=== PATIENT | female | born 1980 | race Caucasian/White ===

== ENCOUNTER → 2017-02-07 | Outpatient (CLI) | payer BC ==
[~2017-02-07] MED LIST: ASPI-391 PEG; ETONMIS VAGRING; HYDR-5688 PO; LISI-725 PO; OMEP40CA PO
== END | disposition home or self-care (01) ==
LOC: C.PAPS 15:14
PROVIDERS: ATTEND Obstetrics & Gynecology
DX: Z01.419 Encounter for gynecological examination (general) (routine) without abnormal findings (principal)

== ENCOUNTER 2017-12-03 09:48 | Emergency (ER) | payer BC, OTHER ==
[~2017-12-03] VITALS: Ht 157.5 cm; Wt 82.6 kg
[2017-12-03 09:52] VITALS: TEMP 37; Ht 157.5 cm; Wt 82.6 kg
[2017-12-03] MEDS ORDERED: LORAZEPAM 2 MG/ML 1 ML VIAL IV STA (10:02)
--- NOTE | 2017-12-03 10:03 | EMERGENCY ROOM VISIT NOTE ---
History Report prepared by Rey: Joseph Weiner Under the Supervision of: Aydin MroelO. First contact with patient: 09:58 Chief Complaint: NEURO SYMPTOMS Stated Complaint: UNCONTROLED MUSCLE MOVMENT/ TWITCHES History of Present Illness The patient is a 37 year old female who presents to the Emergency Room with complaints of episodes of uncontrollable muscle spasms in her legs that started yesterday. She says that she had 2 episodes yesterday, where she had twitching in her legs that each lasted about 20 minutes. The patient states that the episode this morning has been going on for 2 hours now. She notes that she initially thought that her episodes were due to anxiety, as she is on Wellbutrin for depression, but the worsening episode this morning concerned her. She adds that she had a headache a few days ago that she thinks was tension related, but that has resolved. The patient denies any chest pain or shortness of breath. She adds that she is on medication for blood pressure. Source of History: patient Onset: Yesterday Position: leg (bilateral) Symptom Intensity: uncontrollable Quality: other (muscle spasms/twitching) Timing: other (episodes) Associated Symptoms: No chest pain, No SOB Note: No other associated symptoms noted. Review of Systems See HPI for pertinent positives & negatives. A total of 10 systems reviewed and were otherwise negative. Past Medical & Surgical Medical Problems: (1) Asthma (2) Bronchitis (3) Gastroparesis (4) Helicobacter Pylori [H. Pylori] (5) Hypertension (6) Hypertension Nos (7) Mandibular hyperplasia (8) Maxillary hypoplasia (9) Migraines (10) Polycystic Ovarian Syndrome (11) Vertigo Family History No pertinent family history Social History Smoking Status: Never Smoker Alcohol Use: occasionally Drug Use: none Marital Status: Housing Status: lives with family Occupation Status: employed Current/Historical Medications Scheduled Bupropion (Wellbutrin Sr), 200 MG PO QAM Doxepin (Sinequan), 50 MG PO HS Omeprazole (Prilosec), 40 MG PO DAILY Spironolactone (Aldactone), 100 MG PO HS Scheduled PRN Ffmsdum-Cfrmhrbspqlbf-Snbhyzqh (Excedrin Extra Strength), 2 TABS PEG BID PRN for Pain Allergies Coded Allergies: No Known Allergies (Verified , 12/03/17) Physical Exam Vital Signs Date Time Temp Pulse Resp B/P (MAP) Pulse Ox O2 Delivery O2 Flow Rate FiO2 12/03/17 13:55 88 18 143/94 98 12/03/17 12:14 92 20 160/112 98 Room Air 12/03/17 11:16 96 12/03/17 11:11 96 Room Air 12/03/17 09:52 37.0 100 20 167/109 98 Room Air Physical Exam GENERAL: Patient is awake, alert, and in no acute distress. Patient is resting comfortably and showing no signs of anxiety EYES: The conjunctivae are clear. The pupils are round and reactive. EARS, NOSE, MOUTH AND THROAT: The nose is without any evidence of any deformity. Mucous membranes are moist tongue is midline NECK: The neck is nontender and supple. RESPIRATORY: Normal respiratory effort is noted there is no evidence of wheezing rhonchi or rales CARDIOVASCULAR: Regular rate and rhythm noted there no murmurs rubs or gallops normal S1 normal S2 GASTROINTESTINAL: The abdomen is soft. Bowel sounds are present in all quadrants. Abdomen is nontender MUSCULOSKELETAL/EXTREMITIES: There is no evidence of gross deformity full range of motion is noted in the hips and shoulders SKIN: There is no obvious evidence of any rash. There are no petechiae, pallor or cyanosis noted. NEUROLOGIC: Patient is awake alert and oriented x3. Rhythmic tonic activity noted right thigh. Patellar tendon reflexes 1+ bilaterally. Medical Decision & Procedures ER Provider Diagnostic Interpretation: Radiology results as stated below per my review and radiologist interpretation: HEAD WITHOUT CONTRAST (CT) CT DOSE: 537.48 mGy.cm HISTORY: Altered mental status EVALUATE ALTERED MENTAL STATUS/WEAKNESS TECHNIQUE: Multiaxial CT images of the head were performed without the use of intravenous contrast. A dose lowering technique was utilized adhering to the principles of ALARA. Comparison: None. Findings: The paranasal sinuses and mastoid air cells are clear. The calvarium and skull base are intact. The ventricles and sulci are within normal limits. There is no mass, hematoma, midline shift, or acute infarct. Impression: No acute intracranial abnormality. The above report was generated using voice recognition software. It may contain grammatical, syntax or spelling errors. Electronically signed by: David Chu M.D. 12/03/2017 11:48 AM Dictated Date/Time: 12/03/2017 11:47 AM CHEST ONE VIEW PORTABLE CLINICAL HISTORY: EVALUATE ALTERED MENTAL STATUS/WEAKNESS mental status change COMPARISON STUDY: 05/28/2016 FINDINGS: The bones soft tissues and hemidiaphragms are normal. The cardiomediastinal silhouette is normal. The lungs are clear. The pulmonary vasculature is normal. IMPRESSION: Negative chest. The above report was generated using voice recognition software. It may contain grammatical, syntax or spelling errors. Electronically signed by: David Chu M.D. 12/03/2017 10:31 AM Dictated Date/Time: 12/03/2017 10:30 AM Laboratory Results 12/03/17 11:00 Red Blood Count 5.23, Mean Corpuscular Volume 80.9, Mean Corpuscular Hemoglobin 27.3, Mean Corpuscular Hemoglobin Concent 33.8, Mean Platelet Volume 9.6, Neutrophils (%) (Auto) 64.7, Lymphocytes (%) (Auto) 28.7, Monocytes (%) (Auto) 5.1, Eosinophils (%) (Auto) 1.0, Basophils (%) (Auto) 0.4, Neutrophils # (Auto) 5.35, Lymphocytes # (Auto) 2.37, Monocytes # (Auto) 0.42, Eosinophils # (Auto) 0.08, Basophils # (Auto) 0.03 12/03/17 11:00 Test 12/03/17 11:00 12/03/17 12:00 White Blood Count 8.26 K/uL (4.8-10.8) Red Blood Count 5.23 M/uL (4.2-5.4) Hemoglobin 14.3 g/dL (12.0-16.0) Hematocrit 42.3 % (37-47) Mean Corpuscular Volume 80.9 fL (80-100) Mean Corpuscular Hemoglobin 27.3 pg (25-34) Mean Corpuscular Hemoglobin Concent 33.8 g/dl (32-36) Platelet Count 253 K/uL (130-400) Mean Platelet Volume 9.6 fL (7.4-10.4) Neutrophils (%) (Auto) 64.7 % Lymphocytes (%) (Auto) 28.7 % Monocytes (%) (Auto) 5.1 % Eosinophils (%) (Auto) 1.0 % Basophils (%) (Auto) 0.4 % Neutrophils # (Auto) 5.35 K/uL (1.4-6.5) Lymphocytes # (Auto) 2.37 K/uL (1.2-3.4) Monocytes # (Auto) 0.42 K/uL (0.11-0.59) Eosinophils # (Auto) 0.08 K/uL (0-0.5) Basophils # (Auto) 0.03 K/uL (0-0.2) RDW Standard Deviation 42.7 fL (36.4-46.3) RDW Coefficient of Variation 14.3 % (11.5-14.5) Immature Granulocyte % (Auto) 0.1 % Immature Granulocyte # (Auto) 0.01 K/uL (0.00-0.02) Prothrombin Time 10.7 SECONDS (9.0-12.0) Prothromb Time International Ratio 1.0 (0.9-1.1) Activated Partial Thromboplast Time 29.5 SECONDS (21.0-31.0) Partial Thromboplastin Ratio 1.1 Anion Gap 7.0 mmol/L (3-11) Est Creatinine Clear Calc Drug Dose 79.2 ml/min Estimated GFR () 87.0 Estimated GFR (Non- 75.0 BUN/Creatinine Ratio 11.4 (10-20) Calcium Level 9.1 mg/dl (8.5-10.1) Magnesium Level 2.3 mg/dl (1.8-2.4) Total Bilirubin 0.4 mg/dl (0.2-1) Direct Bilirubin < 0.1 mg/dl (0-0.2) Aspartate Amino Transf (AST/SGOT) 22 U/L (15-37) Alanine Aminotransferase (ALT/SGPT) 35 U/L (12-78) Alkaline Phosphatase 105 U/L (45-117) Troponin I < 0.015 ng/ml (0-0.045) Total Protein 7.9 gm/dl (6.4-8.2) Albumin 4.1 gm/dl (3.4-5.0) Thyroid Stimulating Hormone (TSH) 1.580 uIu/ml (0.300-4.500) Human Chorionic Gonadotropin, Qual NEG (NEG) Urine Color YELLOW Urine Appearance CLEAR (CLEAR) Urine pH 7.5 (4.5-7.5) Urine Specific [place] 1.005 (1.000-1.030) Urine Protein NEG (NEG) Urine Glucose (UA) NEG (NEG) Urine Ketones NEG (NEG) Urine Occult Blood NEG (NEG) Urine Nitrite NEG (NEG) Urine Bilirubin NEG (NEG) Urine Urobilinogen NEG (NEG) Urine Leukocyte Esterase NEG (NEG) Laboratory results per my review. ECG Per My Interpretation Indication: other (neuro symptoms) Rate (beats per minute): 86 Rhythm: normal sinus Findings: other (no PVCs, no acute ST segment abnormalities) Change: no significant change (from 05/28/16) ED Course 0959: The patient was evaluated in room B5. A complete history and physical examination were performed. 1002: Ativan Inj 1 mg IV. 1053: I reevaluated and updated the patient. 1320: Upon reevaluation, the patient is resting comfortably. I discussed the results and treatment plan with her. She verbalized agreement of the treatment plan. She was discharged home. Medical Decision Differential diagnosis: Etiologies such as infection, hypoglycemia, electrolyte abnormalities, cardiac sources, intracerebral event, trauma, toxicologic, neurologic, as well as others were entertained. Nursing notes reviewed. Additional history is obtained from the patient's significant other. The patient is a 37-year-old female who presented to the emergency department with a right leg shaking. Initially I thought this was secondary to a focal seizure but she was able to control it. The patient was treated with Ativan in the emergency department. On subsequent reevaluation she was significantly improved. She was encouraged to continue all medications as prescribed. She was also encouraged to follow-up with her therapist as scheduled as well as her primary care physician as soon as possible. Otherwise she was encouraged to return to the emergency department immediately if symptoms change worsen or the need arises. Medication Reconcilliation Current Medication List: was personally reviewed by me Blood Pressure Screening Patient's blood pressure: Elevated blood pressure Blood pressure disposition: Elevated BP felt to be situational Impression Primary Impression: Anxiety Additional Impression: Muscle tremor Scribe Attestation The scribe's documentation has been prepared under my direction and personally reviewed by me in its entirety. I confirm that the note above accurately reflects all work, treatment, procedures, and medical decision making performed by me. Departure Information Dispostion Home / Self-Care Referrals No Doctor, Assigned (PCP) Mary Perez D.O. Forms HOME CARE DOCUMENTATION FORM, IMPORTANT VISIT INFORMATION, WORK / SCHOOL INSTRUCTIONS Patient Instructions Anxiety Disorder, Muscle Spasm, My [facility] Additional Instructions Continue all medications as prescribed. Follow-up with your family doctor soon as possible. Follow-up with your therapist. Return to the emergency department immediately if symptoms change worsen or the need arises. Problem Qualifiers
[2017-12-03] MEDS ORDERED: SPIR100T PO (10:18)
[2017-12-03] MEDS ORDERED: OMEP40CA41 PO (10:18)
[2017-12-03] MEDS ORDERED: DOXE50CA3 PO (10:18)
[2017-12-03] MEDS ORDERED: BUPR200T2 PO (10:18)
--- NOTE | 2017-12-03 10:32 | DIAGNOSTIC IMAGING REPORT ---
CHEST ONE VIEW PORTABLE CLINICAL HISTORY: EVALUATE ALTERED MENTAL STATUS/WEAKNESS mental status change COMPARISON STUDY: 05/28/2016 FINDINGS: The bones soft tissues and hemidiaphragms are normal. The cardiomediastinal silhouette is normal. The lungs are clear. The pulmonary vasculature is normal. IMPRESSION: Negative chest. The above report was generated using voice recognition software. It may contain grammatical, syntax or spelling errors. Electronically signed by: David Chu M.D. 12/03/2017 10:31 AM Dictated Date/Time: 12/03/2017 10:30 AM
[2017-12-03 11:11] VITALS: O2SAT 96
[2017-12-03 11:15] LABS: BASO % 0.4 %; BASO ABS # 0.03 K/uL (0-0.2); EOS ABS # 0.08 K/uL (0-0.5); HEMATOCRIT 42.3 % (37-47); HEMOGLOBIN 14.3 g/dL (12.0-16.0); IG# 0.01 K/uL (0.00-0.02); LYMPH % 28.7 %; LYMPH ABS # 2.37 K/uL (1.2-3.4); MEAN CELL VOLUME 80.9 fL (80-100); MEAN CORPUSCULAR HEMOGLOBIN 27.3 pg (25-34); MEAN CORPUSCULAR HGB CONC 33.8 g/dl (32-36); MEAN PLATELET VOLUME 9.6 fL (7.4-10.4); MONO % 5.1 %; MONO ABS # 0.42 K/uL (0.11-0.59); NEUT % 64.7 %; NEUT ABS # 5.35 K/uL (1.4-6.5); PLATELET COUNT 253 K/uL (130-400); RED CELL DISTRIBUTION WIDTH CV 14.3 % (11.5-14.5); RED CELL DISTRIBUTION WIDTH SD 42.7 fL (36.4-46.3); WHITE BLOOD COUNT 8.26 K/uL (4.8-10.8)
[2017-12-03 11:27] LABS: PTT PATIENT 29.5 SECONDS (21.0-31.0)
--- NOTE | 2017-12-03 11:49 | DIAGNOSTIC IMAGING REPORT ---
HEAD WITHOUT CONTRAST (CT) CT DOSE: 537.48 mGy.cm HISTORY: Altered mental status EVALUATE ALTERED MENTAL STATUS/WEAKNESS TECHNIQUE: Multiaxial CT images of the head were performed without the use of intravenous contrast. A dose lowering technique was utilized adhering to the principles of ALARA. Comparison: None. Findings: The paranasal sinuses and mastoid air cells are clear. The calvarium and skull base are intact. The ventricles and sulci are within normal limits. There is no mass, hematoma, midline shift, or acute infarct. Impression: No acute intracranial abnormality. The above report was generated using voice recognition software. It may contain grammatical, syntax or spelling errors. Electronically signed by: David Chu M.D. 12/03/2017 11:48 AM Dictated Date/Time: 12/03/2017 11:47 AM
[2017-12-03 11:51] LABS: ALBUMIN 4.1 gm/dl (3.4-5.0); ALT/SGPT 35 U/L (12-78); BLOOD UREA NITROGEN 11 mg/dl (7-18); CALCIUM 9.1 mg/dl (8.5-10.1); CARBON DIOXIDE 24 mmol/L (21-32); CREATININE 0.96 mg/dl (0.60-1.20); GLUCOSE 82 mg/dl (70-99); POTASSIUM 4.5 mmol/L (3.5-5.1); SODIUM 137 mmol/L (136-145)
[2017-12-03 12:02] LABS: ALKALINE PHOSPHATASE 105 U/L (45-117); AST/SGOT 22 U/L (15-37); TOTAL PROTEIN 7.9 gm/dl (6.4-8.2)
[2017-12-03 13:55] VITALS: BP 143/94; PULSE 88; O2SAT 98
== END 2017-12-03 13:55 | disposition home or self-care (01) ==
LOC: C.EDB 09:52
DX: F41.9 Anxiety disorder, unspecified (principal); R25.1 Tremor, unspecified; F32.9 Major depressive disorder, single episode, unspecified; J45.909 Unspecified asthma, uncomplicated; I10 Essential (primary) hypertension; E28.2 Polycystic ovarian syndrome; Z79.899 Other long term (current) drug therapy

== ENCOUNTER 2018-01-15 11:29 | Emergency (ER) | payer OTHER ==
[~2018-01-15] VITALS: Ht 157.5 cm; Wt 81.1 kg
[~2018-01-15 11:29] MED LIST changes: -ASPI-391 PEG; +ASPI-391 PO; +BUPR200T2 PO; +DOXE50CA3 PO; -ETONMIS VAGRING; -HYDR-5688 PO; -LISI-725 PO; -OMEP40CA PO; +OMEP40CA41 PO; +SPIR100T PO
[2018-01-15 11:44] VITALS: TEMP 36.8; Ht 157.5 cm; Wt 81.1 kg
[2018-01-15] MEDS ORDERED: AMLO2.5T PO (12:23)
[2018-01-15] MEDS ORDERED: ABL/5 PO (12:23)
[2018-01-15] MEDS ORDERED: SODIUM CHLORIDE 0.9% 1000ML 1,000 ML IV ONE (12:30)
--- NOTE | 2018-01-15 12:59 | EMERGENCY ROOM VISIT NOTE ---
History First contact with patient: 11:48 Chief Complaint: DIZZY Stated Complaint: LIGHT HEADED,FEELINGS LIKE PASSING,TINGLING Nursing Triage Summary: "I almost passed out driving. Im still feeling tingling on my left side. Im lightheaded and dizzy. I tried calling my doctor and they werent responding." Pt denies these symptoms prior to getting into car. History of Present Illness The patient is a 37 year old female who presents to the Emergency Room with complaints of a near syncopal episode that occurred at approximately 10 AM this morning. The patient was driving when the episode occurred. She describes lightheadedness and numbness and tingling in her hands. She also felt like her vision was closing in. She denies any headache. No chest pain or difficulty breathing. No nausea or vomiting. When asked with the patient has eaten so far today, she said that she has had nothing to drink. She ate some martinez tomatoes this morning. She denies any changes in medication over the last several weeks. She denies any history of diabetes. She has had a few other similar episodes. One occurred when she was bending down last week. They resolved with rest. Review of Systems 10 system review performed and negative unless noted in HPI or below Past Medical/Surgical History Medical Problems: (1) Asthma (2) Bronchitis (3) Gastroparesis (4) Helicobacter Pylori [H. Pylori] (5) Hypertension (6) Hypertension Nos (7) Mandibular hyperplasia (8) Maxillary hypoplasia (9) Migraines (10) Polycystic Ovarian Syndrome (11) Vertigo Family History No pertinent family history Social History Smoking Status: Never Smoker Alcohol Use: occasionally Drug Use: none Marital Status: Housing Status: lives with family Occupation Status: employed Current/Historical Medications Scheduled Amlodipine Besylate (Norvasc), 2.5 MG PO DAILY Aripiprazole (Abilify), 2.5 MG PO QPM Bupropion (Wellbutrin Sr), 200 MG PO QAM Doxepin (Sinequan), 50 MG PO HS Omeprazole (Prilosec), 40 MG PO DAILY Spironolactone (Aldactone), 100 MG PO HS Scheduled PRN Gmfgpzp-Tdltssabvvjlm-Mwheqicf (Excedrin Extra Strength), 2 TABS PO BID PRN for Pain Physical Exam Vital Signs Date Time Temp Pulse Resp B/P (MAP) Pulse Ox O2 Delivery O2 Flow Rate FiO2 4/26/18 15:29 82 18 151/103 100 Room Air 01/15/18 14:52 85 18 148/105 100 Room Air 01/15/18 13:30 92 16 151/100 97 Room Air 104 161/107 97 141/103 01/15/18 12:55 92 01/15/18 11:44 36.8 96 17 169/113 100 Room Air Physical Exam VITALS: Vitals are noted on the nurse's note and reviewed by myself. Vital signs stable. GENERAL: 37-year-old female, mildly anxious in appearance,, SKIN: The skin was without rashes, erythema, edema, or bruising. HEAD: Normocephalic atraumatic. EYES: Pupils equal round and reactive to light and accommodation. Conjunctivae without injection, sclerae without icterus. Extraocular movements intact. MOUTH: Mucous membranes dry NECK: Supple without nuchal rigidity. No JVD. HEART: Regular rate and rhythm without murmurs gallops or rubs. LUNGS: Clear to auscultation bilaterally without wheezes, rales or rhonchi. No accessory muscle use. ABDOMEN: Positive bowel sounds x 4.Soft, nontender, without organomegaly. No guarding or rebound tenderness. MUSCULOSKELETAL: No muscle atrophy, erythema, or edema noted. Strength 5/5 throughout. NEURO: Patient was alert and oriented to person place and time. Cranial nerves grossly intact. Cerebellar function intact. Negative Romberg. Normal sensation to touch. No focal neurological deficits. Medical Decision & Procedures ER Provider Diagnostic Interpretation: CT head without contrast IMPRESSION: No acute intracranial abnormality. Electronically signed by: Harley Lopez M.D. 01/15/2018 2:05 PM Dictated Date/Time: 01/15/2018 2:03 PM Laboratory Results 01/15/18 12:59 Red Blood Count 5.17, Mean Corpuscular Volume 82.6, Mean Corpuscular Hemoglobin 28.2, Mean Corpuscular Hemoglobin Concent 34.2, Mean Platelet Volume 9.4, Neutrophils (%) (Auto) 66.7, Lymphocytes (%) (Auto) 26.9, Monocytes (%) (Auto) 5.3, Eosinophils (%) (Auto) 0.5, Basophils (%) (Auto) 0.3, Neutrophils # (Auto) 5.28, Lymphocytes # (Auto) 2.13, Monocytes # (Auto) 0.42, Eosinophils # (Auto) 0.04, Basophils # (Auto) 0.02 01/15/18 12:59 Test 01/15/18 12:40 01/15/18 12:59 Urine Test NEG (NEG) White Blood Count 7.91 K/uL (4.8-10.8) Red Blood Count 5.17 M/uL (4.2-5.4) Hemoglobin 14.6 g/dL (12.0-16.0) Hematocrit 42.7 % (37-47) Mean Corpuscular Volume 82.6 fL (80-100) Mean Corpuscular Hemoglobin 28.2 pg (25-34) Mean Corpuscular Hemoglobin Concent 34.2 g/dl (32-36) Platelet Count 233 K/uL (130-400) Mean Platelet Volume 9.4 fL (7.4-10.4) Neutrophils (%) (Auto) 66.7 % Lymphocytes (%) (Auto) 26.9 % Monocytes (%) (Auto) 5.3 % Eosinophils (%) (Auto) 0.5 % Basophils (%) (Auto) 0.3 % Neutrophils # (Auto) 5.28 K/uL (1.4-6.5) Lymphocytes # (Auto) 2.13 K/uL (1.2-3.4) Monocytes # (Auto) 0.42 K/uL (0.11-0.59) Eosinophils # (Auto) 0.04 K/uL (0-0.5) Basophils # (Auto) 0.02 K/uL (0-0.2) RDW Standard Deviation 45.3 fL (36.4-46.3) RDW Coefficient of Variation 15.0 % (11.5-14.5) Immature Granulocyte % (Auto) 0.3 % Immature Granulocyte # (Auto) 0.02 K/uL (0.00-0.02) Anion Gap 5.0 mmol/L (3-11) Est Creatinine Clear Calc Drug Dose 69.1 ml/min Estimated GFR () 74.6 Estimated GFR (Non- 64.3 BUN/Creatinine Ratio 8.7 (10-20) Calcium Level 9.4 mg/dl (8.5-10.1) Total Bilirubin 0.4 mg/dl (0.2-1) Aspartate Amino Transf (AST/SGOT) 26 U/L (15-37) Alanine Aminotransferase (ALT/SGPT) 34 U/L (12-78) Alkaline Phosphatase 99 U/L (45-117) Total Protein 8.8 gm/dl (6.4-8.2) Albumin 4.3 gm/dl (3.4-5.0) Globulin 4.5 gm/dl (2.5-4.0) Albumin/Globulin Ratio 1.0 (0.9-2) Chemistry Specimen Hemolysis Medications Administered Medications (Trade) Dose Ordered Sig/Miguelina Route Start Time Stop Time Status Last Admin Dose Admin Sodium Chloride 1,000 ml @ 999 mls/hr Q1H1M ONCE IV 01/15/18 12:30 01/15/18 13:30 DC 01/15/18 13:30 999 MLS/HR ECG Per My Interpretation Indication: syncope Rate (beats per minute): 87 Rhythm: normal sinus Findings: other (Q waves present in the anterior leads. Incomplete right bundle branch block) Change: no significant change (When compared to EKG from December 03, 2017) ED Course Patient was seen and examined Vital signs including blood pressure were reviewed medications list was verified with patient Labs were obtained, and a saline lock was established An EKG was performed, the patient was put on a monitor She was hydrated with 1 L of normal saline Imaging was performed and reviewed upon reevaluation, the patient was feeling somewhat better. We reviewed her results. She voiced understanding, was comfortable being discharged home. I reviewed discharge instructions the patient. They voiced understanding and had no further questions. Medical Decision Differential diagnosis: Dehydration, anxiety/panic attack, hypertensive urgency , cardiac arrhythmia, intracranial abnormality This patient is a 37-year-old female who presents to the emergency department with a feeling of near syncope prior to arrival. She also had some numbness and tingling in her bilateral hands. On exam, she was nontoxic in appearance. Vitals were stable. Neurologic exam was intact. She was dehydrated. Her workup is fairly unremarkable. EKG is unchanged when compared to previous. CT of the head without intracranial abnormalities. She is not significantly anemic. Troponin is negative. Patient does have a history of anxiety, which I feel is playing a role in her symptoms today. The patient's blood pressure was slightly elevated. She was notified of this. She was instructed to follow-up with her primary care physician. She feels comfortable being discharged home with follow-up. She will return with any new or concerning symptoms This chart was completed in part utilizing [employer] Speech Voice Recognition software. Attempts were made to minimize the grammatical errors, random word insertions, pronoun errors and incomplete sentences. Any formal questions or concerns about the content, text or information contained within the body of this dictation should be directly addressed to the provider for clarification. Medication Reconcilliation Current Medication List: was personally reviewed by me Blood Pressure Screening Patient's blood pressure: Elevated blood pressure Blood pressure disposition: Did not require urgent referral Impression Primary Impression: Near syncope Departure Information Dispostion Home / Self-Care Condition GOOD Referrals Mary Perez D.OMarlene (PCP) Patient Instructions My [facility] Additional Instructions You were seen in the emergency department today for feeling like you were going to pass out. Dehydration could be playing a part in your symptoms. Please stay well-hydrated. Increase fluids over the next several days. Your blood pressure was also slightly elevated. Please follow-up with your primary care physician to have this rechecked. This should be rechecked within the next 24-48 hours. Due to your symptoms today, please do not drive or operate machinery until cleared by your primary care physician Please do not hesitate to return to the emergency department with any new, worsening or concerning symptoms It was a pleasure participating in your care today Work Instructions Return To Work: 2 days School Instructions Return To School: 2 days
[2018-01-15 13:14] LABS: BASO % 0.3 %; BASO ABS # 0.02 K/uL (0-0.2); EOS % 0.5 %; EOS ABS # 0.04 K/uL (0-0.5); HEMATOCRIT 42.7 % (37-47); HEMOGLOBIN 14.6 g/dL (12.0-16.0); IG# 0.02 K/uL (0.00-0.02); LYMPH % 26.9 %; LYMPH ABS # 2.13 K/uL (1.2-3.4); MEAN CELL VOLUME 82.6 fL (80-100); MEAN CORPUSCULAR HEMOGLOBIN 28.2 pg (25-34); MEAN CORPUSCULAR HGB CONC 34.2 g/dl (32-36); MEAN PLATELET VOLUME 9.4 fL (7.4-10.4); MONO % 5.3 %; MONO ABS # 0.42 K/uL (0.11-0.59); NEUT % 66.7 %; NEUT ABS # 5.28 K/uL (1.4-6.5); PLATELET COUNT 233 K/uL (130-400); RED CELL DISTRIBUTION WIDTH SD 45.3 fL (36.4-46.3); WHITE BLOOD COUNT 7.91 K/uL (4.8-10.8)
[2018-01-15 13:42] LABS: ALBUMIN 4.3 gm/dl (3.4-5.0); CALCIUM 9.4 mg/dl (8.5-10.1); CREATININE 1.09 mg/dl (0.60-1.20); POTASSIUM 3.8 mmol/L (3.5-5.1); TOTAL PROTEIN 8.8 gm/dl (6.4-8.2)
--- NOTE | 2018-01-15 14:06 | DIAGNOSTIC IMAGING REPORT ---
CT SCAN OF THE BRAIN WITHOUT IV CONTRAST CLINICAL HISTORY: Near syncope. Hypertension. COMPARISON STUDY: CT of the brain dated 12/03/2017. TECHNIQUE: Unenhanced axial CT scan of the brain is performed from the vertex to the skull base. A dose lowering technique was utilized adhering to the principles of ALARA. CT DOSE: 537.48 mGy.cm FINDINGS: Brain parenchyma: The brain parenchyma is normal in appearance. There is no hemorrhage, mass effect, or evidence of acute territorial ischemia by CT criteria. Moraes-white matter is preserved. No extra-axial fluid collection is seen. Ventricles, sulci, cisterns: Normal in configuration. Intracranial vasculature: The visualized intracranial vasculature at the skull base is normal in appearance. Calvarium: Unremarkable. Sinuses and mastoids: The visualized paranasal sinuses are clear. The mastoid air cells are well pneumatized. Orbits: The bony orbits are grossly intact. IMPRESSION: No acute intracranial abnormality. Electronically signed by: Harley Lopez M.D. 01/15/2018 2:05 PM Dictated Date/Time: 01/15/2018 2:03 PM
[2018-01-15 15:29] VITALS: BP 151/103; PULSE 82; O2SAT 100
== END 2018-01-15 15:54 | disposition home or self-care (01) ==
LOC: C.EDB 11:30
DX: R55 Syncope and collapse (principal); J45.909 Unspecified asthma, uncomplicated; I10 Essential (primary) hypertension; Z79.899 Other long term (current) drug therapy